=== PATIENT | female | born 1955 | race African-American/Black ===

== ENCOUNTER 2016-11-06 14:35 | Emergency (ER) | payer MEDICARE, MEDICAID ==
--- NOTE | 2016-11-06 14:54 | ER Document Report ---
ED Medical Screen (RME) - General Chief Complaint: S/S of Possible Stroke Stated Complaint: POSSIBLE STROKE Time Seen by Provider: 11/06/16 14:43 Mode of Arrival: Wheelchair Information source: Patient, Relative Notes: 31-year-old female patient comes emergency room complaining of onset 10:30 AM of left facial weakness drooping and left arm weakness. She reports she has had 3 previous episodes in the last 3 weeks of left facial droop which would eventually clear up on its own. She has seen her primary care provider and by history has not had any further workup or medications. She takes medications for COPD, hypertension, cholesterol. Given the history, we will bypass CT scan and sent her straight to MRI to get an MRI of the brain and MRA of the neck. She does remain in the window for interventional treatment. TRAVEL OUTSIDE OF THE [place] IN LAST 30 DAYS: No - Related Data Allergies/Adverse Reactions: No Known Allergies Allergy (Verified 11/06/16 14:39) Past Medical History Renal/ Medical History: Denies: Hx Peritoneal Dialysis Physical Exam - Vital signs Vitals: Pulse Resp BP Pulse Ox 77 24 H 139/117 H 97 11/06/16 14:40 11/06/16 14:40 11/06/16 14:40 11/06/16 14:40 Course - Vital Signs Vital signs: Temp Pulse Resp BP Pulse Ox 77 24 H 139/117 H 97 11/06/16 14:40 11/06/16 14:40 11/06/16 14:40 11/06/16 14:40
--- NOTE | 2016-11-06 15:12 | ER Document Report ---
ED Neuro Symptoms/Deficit - General Chief Complaint: S/S of Possible Stroke Stated Complaint: POSSIBLE STROKE Time Seen by Provider: 11/06/16 14:43 Mode of Arrival: Wheelchair Notes: The patient is a 61-year-old female, past medical history hypertension, hypercholesterolemia, presents with left-sided facial droop and left sided arm and leg weakness that started at 10:30 am this morning. She was sitting on the porch when her loved ones noticed her left-sided facial droop. Pt also was having ataxia and couldn't move her left side. She went to take a nap and when she awoke, she was still having the same symptoms. No sensory changes. She has had 3 episodes of left-sided facial droop during the past 3 weeks that have resolved on their own. Patient was seen by a physician in triage and taken straight to MRI further evaluation prior to my initial evaluation. Pt also has dull right-sided headache and is requesting Tylenol. She took 324 mg ASA prior to arrival. She denies blurry vision, difficulty swallowing, nausea, vomiting, fevers, neck stiffness, chest pain, shortness of breath or abdominal pain. TRAVEL OUTSIDE OF THE [place] IN LAST 30 DAYS: No - Related Data Allergies/Adverse Reactions: No Known Allergies Allergy (Verified 11/06/16 14:39) Past Medical History - General Information source: Patient, Relative - Social History Smoking Status: Unknown if Ever Smoked Family History: Reviewed & Not Pertinent Patient has suicidal ideation: No Patient has homicidal ideation: No Renal/ Medical History: Denies: Hx Peritoneal Dialysis Review of Systems - Review of Systems Notes: REVIEW OF SYSTEMS: CONSTITUTIONAL: -fevers, -chills EENT: -eye pain, -difficulty swallowing, -nasal congestion CARDIOVASCULAR:-chest pain, -syncope. RESPIRATORY: -cough, -SOB GASTROINTESTINAL: -abdominal pain, - nausea, -vomiting, -diarrhea GENITOURINARY: -dysuria, -hematuria MUSCULOSKELETAL: -back pain, -neck pain SKIN: -rash or skin lesions. HEMATOLOGIC: -easy bruising or bleeding. LYMPHATIC: -swollen, enlarged glands. NEUROLOGICAL: -altered mental status or loss of consciousness, +headache, +left facial droop and left-sided arm and leg weakness, +slurred speech, +ataxia PSYCHIATRIC: -anxiety, -depression. ALL OTHER SYSTEMS REVIEWED AND NEGATIVE. Physical Exam - Vital signs Vitals: Pulse Resp BP Pulse Ox 77 24 H 139/117 H 97 11/06/16 14:40 11/06/16 14:40 11/06/16 14:40 11/06/16 14:40 - Notes Notes: PHYSICAL EXAMINATION: GENERAL: Well-appearing, well-nourished and in no acute distress. HEAD: Atraumatic, normocephalic. EYES: Pupils equal round and reactive to light, extraocular movements intact, sclera anicteric, conjunctiva are normal. ENT: nares patent, oropharynx clear without exudates. Moist mucous membranes. NECK: Normal range of motion, supple without lymphadenopathy LUNGS: Breath sounds clear to auscultation bilaterally and equal. No wheezes rales or rhonchi. HEART: Regular rate and rhythm without murmurs ABDOMEN: Soft, nontender, normoactive bowel sounds. No guarding, no rebound. No masses appreciated. EXTREMITIES: No pitting or edema. No cyanosis. NEUROLOGICAL: Left-sided facial droop, able to furrow brows, 2/5 strength in LUE and LLE, 5/5 strength in RUE and RLE, difficult to test LUE and LLE ataxia due to weakness but past-pointing present, mild slurring of speech (according to family at bedside), no sensory changes PSYCH: Normal mood, normal affect. SKIN: Warm, Dry, normal turgor, no rashes or lesions noted. Course - Re-evaluation Re-evalutation: 11/06/16 15:[address] Johns (Radiologist). MRI shows acute right frontal infarct with extension into sylvian fossa. Spoke to [facility] immediately after call and spoke to Dr. Patel ([facility]rologist) . He recommends calling back after CTA results. 11/06/16 16:[address] Johns. Pt has an acute right ICA CVA on CTA. Placed call to Dr. Patel and he will speak to Neurosurgery to see if patient is a viable candidate for Intervention and then will call back. 11/06/16 16:[address] Reese Farris (Neurosurgeon) and he recommends transfer for potential intervention based on CTA read. Pt is protecting her airway. Pt not a TPA candidate due to 5 hours since onset of symptoms. Her NIHSS is 9. Dr. Kong is the accepting EM M.D. - Vital Signs Vital signs: Temp Pulse Resp BP Pulse Ox 77 24 H 139/117 H 97 11/06/16 14:40 11/06/16 14:40 11/06/16 14:40 11/06/16 14:40 - Laboratory Result Diagrams: 11/06/16 15:05 11/06/16 15:05 - Diagnostic Test Radiology reviewed: Image reviewed, Reports reviewed Radiology results interpreted by me: MRI Brain: FINDINGS: Diffusion-weighted images are positive for acute ischemic change in the right frontal perisylvian cortex, subcortical white matter, insular cortex, anterior external capsule, and right basal ganglia. Mild local mass effect with partial effacement of the anterior right sylvian fissure. No gross hemorrhage. This report was discussed with Dr. Hooker in the emergency room. IMPRESSION: Limited diffusion imaging demonstrates an acute infarct in the right MCA distribution , frontal perisylvian region, insular cortex, external capsule, and basal ganglia CTA Head/Neck: IMPRESSION: Acute/early subacute right MCA distribution nonhemorrhagic infarct Occluded right high cervical ICA, occluded petrous right ICA Faint contrast enhancement in the right M-1 segment middle cerebral artery. Occluded right MCA sylvian fissure anterior branches. - EKG Interpretation by Me EKG shows normal: Sinus rhythm, [place], Intervals, QRS Complexes, ST-T Waves Rate: Normal Critical Care Note - Critical Care Note Total time excluding time spent on procedures (mins): 55 ED [employer]te[employer]/Exc Criteria - Date/Time patient last known well: Date/Time: 11/06/2016 10:30 am - Date/Time patient arrived in ED: _: 11/06/2016 15:00 - Inclusion Criteria: 1: Patient presented to ED within 3 hours of acute ischemic stroke symptom onset ? -: No 2: Did baseline CT exclude intracranial hemorrhage and/or other risk factors? -: Yes 3: Is the age of the patient 18 years of age or greater? -: Yes : If any of the above questions are answered "NO" then stop, patient is not a candidate for Alteplase, : If all of the above questions are answered "YES" then continue with Exclusion Criteria. - Exclusion Criteria: 1: Is there evidence of intracranial hemorrhage on baseline CT? 2: Is there suspicion of subarachnoid hemorrhage (even if CT negative)? 3: Is there a history of serious head trauma, recent previous stroke or HI within 3 months? 4: Does the patient have a clinical presentation consistent with HI or post-HI pericarditis? 5: Is there history of intracranial hemorrhage? 6: On repeated measurement is Systolic BP greater than 185mmHg or Diastolic BP greater that 110 mmHg and is aggressive treatment needed to reduce blood pressure to these limits (e.g. constant infusion of an anti-hypertensive)? 7: Did the patient awake with stroke symptoms? 8: Has the patient had a lumbar puncture or an arterial puncture at a non- compressile site within 7 days? 9: With in the last 14 days did the patient have surgery or major trauma? 10: Is the patient or less than 2 weeks? 11: Was there any active bleeding or acute trauma? 12: Does the patient have intracranial neoplasm, arteriovenous malformation or aneurysm? 13: Does the patient have abnormal glucose (less than 50 or greater than 400mg/ dl)? Record glucose in Comment. 14: Patient has rapidly improving symptoms at the time Alteplase is to be Administered. 15: Does the patient have any risks for bleeding, including but not limited to: a.: Current use of Coumadin with PT greater than 15 seconds or INR greater than 1.7. b.: Current use of Pradaxa (Dabigatran). c.: Heparin administereed within the past 48 hours and PTT elevated. d.: Platelet count less than 100,000/mm. e.: Major surgery or serious trauma within 14 days. f.: Gastrointestinal or gynecological urinary bleeding within 14 days. g.: Myocardial Infarction (HI) within 3 months. : If the answer to any of the above questions is "YES" then stop, the patient is not a candidate for Alteplase. : If the answer to all of the above questions is "NO" then the patient may be eligible for the Administration of Alteplase. : If the patient is noted to have seizure activity at onset of Stroke symptoms; Consult Neurologist for further evaluation. - The patient is: -: Included and is eligible to receive Alteplase. *Initiate bed placement at higher level of care* Reviewd risks & benefits of thrombolytic therapy: I have reviewed the risks and benefits of thrombolytic therapy with the patient and/or his/her family. -: Excluded and not eligible to receive Alteplase for the above exclusions. -: Excluded and not eligible to receive Alteplase for other reasons (specify in comments): - Diagnosis of TIA: -: Patient presented with transient symptoms that are now resolved and no other neurologic findings are currently present. List symptoms in comments. -: Patient is NOT a candidate for tPA. -: ____(put name in comment) has been consulted for admission and continued evaluation of risk factor assessment. ED NIH Stroke Scale - NIH Stroke Scale When completed:: Before Alteplase *: 1. NIH scale should be completed with appropriate accompanying assessment tools. *: 2. The NIH should reflect what the patient is capable of doing and should not be coached by the clinician. 1a. Level of Consciousness: 0=Alert;keenly responsive -: 1=Drowsy -: 2=Obtunded -: 3=Coma/unresponsive or reflex to noxious stimuli. 1a. Responses: 0 1b. Orientation Questions: a. What month is it? -: b. How old are you? -: 0=Answers both questions correctly. -: 1=Answers one question correctly or patient is intubated or has orotracheal trauma. -: 2=Answers neither question correctly. 1b. Responses: 0 1c. Response to commands: a. Open and close eyes? -: b. [employer] and release hand? -: Credit is given despite weakness. Demonstration of task is permitted. Substitute command if hands cannot be used. -: 0=Performs both tasks correctly -: 1=Performs one task correctly -: 2=Performs neither task correctly 1c. Responses: 0 2. Gaze: Establish eye contact and instruct patient to "Follow my finger" -: 0=Normal -: 1=Partial gaze palsy. Gaze is abnormal in one or both eyes, but where forced deviation or total gaze paresis is not present. -: 2=Forced deviation or total gaze paresis. 2. Responses: 0 3. Visual Fair: Sees fingers in all four quadrants. -: 0=No visual loss. -: 1=Partial hemianopsia. -: 2=Complete hemianopsia. -: 3=Bilateral hemianopsia (including Cortical blindness) 3. Responses: 0 4. Facial Movement: Instruct patient to: -: a. Show me your teeth -: b. Raise your eyebrows -: c. Close your eyes -: d. Smile -: 0=Normal symmetrical movement -: 1=Minor paralysis (flattened nasolabial fold, asymmetry on smiling). -: 2=Partial paralysis (total or near total paralysis of lower face). -: 3=Complete paralysis of upper and lower face 4. Responses: 3 5. Motor functions (left arm): Alternate sides and extend each arm with palms down (90 degrees if sitting or 45 degrees for supine). -: 0=No drift;limb holds for full 10 seconds. -: 1=Drift; limb holds but drifts down before full 10 seconds, but does not hit bed. -: 2=Some effort against gravity; limb cannot get to or maintain position. -: 3=No effort against gravity; limb falls. -: 4=No movement. -: UN=Amputation, joint fusion, explain in comments. 5. Responses (left arm): 2 5. Motor Functions (right arm): Alternate sides and extend each arm with palms down (90 degrees if sitting or 45 degrees for supine). -: 0=No drift;limb holds for full 10 seconds. -: 1=Drift; limb holds but drifts down before full 10 seconds, but does not hit bed. -: 2=Some effort against gravity; limb cannot get to or maintain position. -: 3=No effort against gravity; limb falls. -: 4=No movement. -: UN=Amputation, joint fusion, explain in comments. 5. Responses (right arm): 0 6. Motor Functions (left leg): With patient lying supine, alternate sides and extend each leg (30 degrees always while supine). -: 0=No drift, leg holds position for full 5 seconds -: 1=Drift; leg falls before full 5 seconds but does not hit bed. -: 2=Some effort against gravity, leg falls to bed but some effort against gravity. -: 3=No effort against gravity, leg falls to bed immediately. -: 4=No movement. -: UN=Amputation, joint fusion; explain in comments. 6. Responses (left leg): 2 6. Motor Functions (right leg): With patient lying supine, alternate sides and extend each leg (30 degrees always while supine). -: 0=No drift, leg holds position for full 5 seconds -: 1=Drift; leg falls before full 5 seconds but does not hit bed. -: 2=Some effort against gravity, leg falls to bed but some effort against gravity. -: 3=No effort against gravity, leg falls to bed immediately. -: 4=No movement. -: UN=Amputation, joint fusion; explain in comments. 6. Responses (right leg): 0 7. Limb Ataxia: With eyes open instruct patient to: -: a. "Touch your finger to your nose". -: b. "Touch your heel to your armstrong" -: 0=Absent -: 1=Present in one limb. -: 2=Present in two limbs. -: UN=Amputation or joint fusion; explain in comments. 7. Responses: 1 7. If ataxia present choose as appropriate: Left arm, Left leg 8. Sensory: Test sensation using pinprick or noxious stimuli. Test as many body parts as possible. -: 0=Normal;no sensory loss -: 1=Mile to moderate sensory loss (patient feels pin prick but is less sharp on affected side). -: 2=Severe or total sensory loss. 8. Responses: 0 9. Best Language: Instruct patient to: -: a. "Describe what you see in this picture." -: b. "Name the items in this picture." -: c. "Read these sentences." -: 0=No aphasia, normal -: 1=Mild to moderate aphasia. -: 2=Severe aphasia -: 3=Mute, global aphasia, no usable speech or auditory comprehension. 9. Responses: 1 10. Articulation, Dysarthia: Instruct patient to: -: "Read these words" or "Repeat these words" -: 0=Normal -: 1=Mild to moderate; patient may slur some words but can be understood without difficulty. -: 2=Severe; patients speech so slurred as to be unintelligible in the absence of dysphasia. -: UN=Intubated or other physical barrier, explain in comments. 10. Responses: 0 11. Extinction or inattention: 0=No abnormality -: 1= Visual, tactile, auditory, spatial, or personal inattention or extinction to bilateral simulation in one or the sensory modalities. -: 2=Profound lucas-inattention or lucas-inattention to more than one modality; does not recognize own hand. 11. Responses: 0 Total Score: 9 Discharge - Discharge Clinical Impression: Acute CVA (cerebrovascular accident) Condition: Stable Disposition: [facility]
[2016-11-06 15:19] LABS: ABSOLUTE EOSINOPHILS # (AUTO) 0.2 10^3/uL (0.0-0.6); ABSOLUTE LYMPHOCYTES (AUTO) 3.3 10^3/uL (0.5-4.7); ABSOLUTE MONOCYTES (AUTO) 0.8 10^3/uL (0.1-1.4); BASOPHILS % (AUTO) 0.6 % (0-2); EOSINOPHILS % (AUTO) 2.3 % (0-6); HEMATOCRIT 42.7 % (36.0-47.0); HEMOGLOBIN 13.7 g/dL (12.0-15.5); HGB HCT DIFFERENCE -1.6; LYMPHOCYTES % (AUTO) 39.6 % (13-45); MEAN CORPUSCULAR HEMOGLOBIN 28.1 pg (27.0-33.4); MEAN CORPUSCULAR HGB CONC 32.2 g/dL (32.0-36.0); MEAN CORPUSCULAR VOLUME 87 fl (80-97); MONOCYTES % (AUTO) 9.4 % (3-13); RED CELL DISTRIBUTION WIDTH 13.7 % (11.5-14.0); SEGMENTED NEUTROPHILS % (AUTO) 48.1 % (42-78); WHITE BLOOD COUNT 8.2 10^3/uL (4.0-10.5)
[2016-11-06 15:30] LABS: PROTHROMBIN TIME 11.9 SEC (11.4-15.4)
[2016-11-06 15:31] LABS: PARTIAL THROMBOPLASTIN TIME 39.6 SEC (23.5-35.8)
[2016-11-06 15:38] LABS: ALANINE AMINOTRANSFERASE 22 U/L (9-52); ALBUMIN 4.2 g/dL (3.5-5.0); ALKALINE PHOSPHATASE 52 U/L (38-126); ANION GAP 10 (5-19); ASPARTATE AMINO TRANSFERASE 15 U/L (14-36); BILIRUBIN,DIRECT 0.3 mg/dL (0.0-0.4); BILIRUBIN,TOTAL 0.5 mg/dL (0.2-1.3); BLOOD UREA NITROGEN 12 mg/dL (7-20); CALCIUM 9.7 mg/dL (8.4-10.2); CARBON DIOXIDE 26 mmol/L (22-30); CHLORIDE 109 mmol/L (98-107); CREATINE KINASE 84 U/L (30-135); CREATININE RESULT 0.65 mg/dL (0.52-1.25); GLUCOSE 98 mg/dL (75-110); POTASSIUM 4.1 mmol/L (3.6-5.0); SODIUM 144.5 mmol/L (137-145); TOTAL PROTEIN 7.1 g/dL (6.3-8.2)
[2016-11-06 15:55] LABS: CREATINE KINASE MB 0.54 ng/mL (<4.55); TROPONIN I < 0.012 ng/mL
--- NOTE | 2016-11-06 15:58 | RADIOLOGY REPORT (SQ) ---
EXAM DESCRIPTION: MRI HEAD WITHOUT COMPLETED DATE/TIME: 11/06/2016 3:50 pm REASON FOR STUDY: ACUTE LEFT FACE AND ARM PARALYSIS COMPARISON: None. TECHNIQUE: Sagittal T1, axial diffusion imaging were obtained. Patient was unable to tolerate the r emainder of the MRI brain exam LIMITATIONS: None. FINDINGS: Diffusion-weighted images are positive for acute ischemic change in the right frontal rachel sylvian cortex, subcortical white matter, insular cortex, anterior external capsule, and right basal ganglia. Mild local mass effect with partial effacement of the anterior right sylvian fissure. No g ross hemorrhage. This report was discussed with Dr. Hooker in the emergency room. IMPRESSION: Limited diffusion imaging demonstrates an acute infarct in the right MCA distribution, f rontal perisylvian region, insular cortex, external capsule, and basal ganglia TECHNICAL DOCUMENTATION: JOB ID: [id number]- All Rights Reserved
--- NOTE | 2016-11-06 16:12 | RADIOLOGY REPORT (SQ) ---
EXAM DESCRIPTION: CTA HEAD COMPLETED DATE/TIME: 11/06/2016 3:54 pm REASON FOR STUDY: left facial droop COMPARISON: MRI brain earlier today TECHNIQUE: Post IV contrast scanning, thin section axial imaging through the brain to evaluate the a rterial structures. Source and MIP images are saved and reviewed on PACS. Advanced 3D imaging as volume-rendering, MIPs, SSD performed? yes All CT scanners at this facility use dose modulation, iterative reconstruction, and/or weight based d osing when appropriate to reduce radiation dose to as low as reasonably achievable (ALARA). [facility]: Dose Right [facility]: CareDose [facility]: Dose Right [facility]: Teradose 4D [facility]: [employer] CONTRAST TYPE AND DOSE: 100 Isovue 370- low osmolar. RENAL FUNCTION: Deferred LIMITATIONS: None. FINDINGS: Non contrasted CT brain was performed prior to the CT angio [place]. An acute or early subacute infarct is present in the right frontal perisylvian MCA distribution, nonhemorrhagic. There is loss of nixon-white differentiation, sulcal effacement and low attenuation in the right fro ntal perisylvian cortex and subcortical white matter, right insular cortex, external capsule and late ral basal ganglia. Higher up over the right convexity, too small chronic appearing lacunar infarcts are present in the p osterior frontal white matter. Noncontrast CT today demonstrates no acute intracranial hemorrhage, or midline shift. Bone windows a re unremarkable. [place]: On the right side, via high cervical internal carotid artery is occluded. There is no contrast enhancement in the right petrous carotid. The right parasellar ICA, para clinoid ICA exhibits minimal contrast enhancement, likely due to colla teral flow from [place] vessels. The right middle cerebral artery an-1 segment has trace contrast enhancement on axial image 106. Pos terior perisylvian branches demonstrate contrast enhancement. Anterior MCA perisylvian branches are occluded in the area of infarct. Bilateral anterior cerebral arteries, posterior cerebral arteries, left middle cerebral artery enhanc e normally. No aneurysm. No vascular malformation. BRAIN: No brain parenchymal enhancing lesions as visualized. Absent contrast enhancement of the righ t frontal perisylvian cortex and subcortical white matter, right insular cortex, right external capsu le, and right lateral basal ganglia BONES: Intact as visualized. SINUSES: No fluid or mucosal thickening. OTHER: This report was called to Dr. Hooker, 1540 hours, 11/06/2016 IMPRESSION: Acute/early subacute right MCA distribution nonhemorrhagic infarct Occluded right high cervical ICA, occluded petrous right ICA Faint contrast enhancement in the right M-1 segment middle cerebral artery. Occluded right MCA sylvi an fissure anterior branches. TECHNICAL DOCUMENTATION: JOB ID: [id number] Quality ID # [id number]: Final reports with documentation of one or more dose reduction techniques (e.g., Au tomated exposure control, adjustment of the mA and/or kV according to patient size, use of iterative reconstruction technique) 2010 [employer]- All Rights Reserved
--- NOTE | 2016-11-06 16:21 | RADIOLOGY REPORT (SQ) ---
EXAM DESCRIPTION: CTA NECK COMPLETED DATE/TIME: 11/06/2016 3:54 pm REASON FOR STUDY: left facial droop COMPARISON: Limited MRI brain same date CT angio brain same date TECHNIQUE: Axial dynamic scanning technique with dynamic contrast enhancement through the extra-cinder crane operator nial carotid and vertebral arteries. Multiplanar reconstruction. 3-D MIPS and Volume-rendered imag es acquired at the workstation and saved to PACS. Images are reviewed in soft tissue, bone, lung w indows. All CT scanners at this facility use dose modulation, iterative reconstruction, and/or weight based d osing when appropriate to reduce radiation dose to as low as reasonably achievable (ALARA). [facility]: Dose Right [facility]: CareDose [facility]: Dose Right [facility]: Teradose 4D [facility]: [employer] CONTRAST TYPE AND DOSE: contrast/concentration: Isovue 370.00 mg/ml; Total Contrast Delivered: 100.0 ml; Total Saline Delivered: 70.0 ml RENAL FUNCTION: Deferred LIMITATIONS: None. FINDINGS: AORTIC ARCH: Normal three-vessel origin. Bilateral subclavian arteries are patent. No d issection. RIGHT CAROTIDS: The right common carotid artery is patent. There is occlusion of the proximal right internal carotid artery at the level of the carotid bifurcat ion. This extends up to the skullbase and petrous ICA. There is contrast enhancement in the parasel lar right ICA, likely related to [place] collateral flow. RIGHT VERTEBRAL: Patent. No dissection. LEFT CAROTIDS: Patent common, internal and external carotid arteries without suggestion of significan t stenosis. No dissection. Mild mixed calcific and noncalcific plaque left carotid bifurcation. Le ft cervical ICA, left ICA at the skullbase normal. LEFT VERTEBRAL: Patent. No dissection. OTHER: No neck masses or adenopathy. OTHER: 3-D reconstructions confirm findings. Findings were discussed with Dr. Quinones in the emergency room, 1540 hours 11/06/2016 IMPRESSION: Occluded right cervical ICA at its origin with occluded right ICA through the neck up to the parasellar ICA as above. No flow significant stenosis at the left carotid bifurcation. COMMENT: Pertinent findings on the imaging study reported as a CRITICAL RESULT to GABRIELE QUINONES MD at15:40 on 11/06/2016. Category of Critical Result: Occluded right cervical internal carotid artery Quality ID #[id number]: Measurements of distal internal carotid diameter were used as the denominator for st enosis measurement. TECHNICAL DOCUMENTATION: JOB ID: [id number] Quality ID # [id number]: Final reports with documentation of one or more dose reduction techniques (e.g., Au tomated exposure control, adjustment of the mA and/or kV according to patient size, use of iterative reconstruction technique) 2010 [employer]- All Rights Reserved
[2016-11-06] MEDS ORDERED: ACETAMINOPHEN 325 MG TABLET PO ONE (16:59)
--- NOTE | 2016-11-06 17:02 | EKG REPORT ---
SEVERITY:- NORMAL ECG - SINUS RHYTHM : Confirmed by: Marisa Clark MD 06-Nov-2016 17:02:04
[2016-11-06] MEDS ORDERED: ALBUTEROL SULFATE 0.083% NEB 2.5 MG/3 ML AMPUL NEB ONE (17:13)
[2016-11-06 18:17] VITALS: BP 148/76
== END 2016-11-06 18:10 | disposition short-term general hospital (02) ==
LOC: ER 14:35
DX: I63.231 Cerebral infarction due to unspecified occlusion or stenosis of right carotid arteries (principal); G81.94 Hemiplegia, unspecified affecting left nondominant side; R29.810 Facial weakness; R27.0 Ataxia, unspecified; R47.81 Slurred speech; I10 Essential (primary) hypertension; R51 Headache
CPT/HCPCS: 93005; 94640; 99291; 36415; 82553; 82550; 85025; 85610; 85730; 80053; 84484; 70551; 70496; 70498; 93010; A9270 ×2